=== PATIENT | male | born 1990 | race Caucasian/White ===

== ENCOUNTER 2018-12-05 13:13 | Emergency (ER) | payer SELFPAY ==
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
[2018-12-05] MEDS ORDERED: KETOROLAC TROMETHAMINE 60 MG/2 ML SDV IM ONE (16:22)
[2018-12-05] MEDS ORDERED: LIDOCAINE 5% (700 MG) TRANSDERMAL ADH..PATCH TP ONE (16:22)
[2018-12-05] MEDS ORDERED: ACETAMINOPHEN 325 MG TABLET PO ONE (16:22)
[2018-12-05] MEDS ORDERED: CYCLOBENZAPRINE HCL 10 MG TABLET PO ONE (16:23)
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
[2018-12-05 16:42] VITALS: BP 178/86
== END 2018-12-05 16:45 | disposition home or self-care (01) ==
LOC: ER 13:13
DX: R07.81 Pleurodynia (principal); S00.532A Contusion of oral cavity, initial encounter; R68.84 Jaw pain; V86.96XA Unspecified occupant of dirt bike or motor/cross bike injured in nontraffic accident, initial encounter
CPT/HCPCS: 99283; 96372; 70110; 71101; J1885

== ENCOUNTER 2019-06-12 20:20 | Emergency (ER) | payer SELFPAY ==
[2019-06-12] MEDS ORDERED: ACETAMINOPHEN 325 MG TABLET PO ONE (20:43)
--- NOTE | 2019-06-12 20:44 | ER Document Report ---
ED Medical Screen (RME) - General Chief Complaint: Nose Pain Stated Complaint: NOSE INJURY Time Seen by Provider: 06/12/19 20:37 Notes: Patient is a 28-year-old male who presents to the emergency department after falling down a flight of stairs. Patient states that he does not know how many stairs he fell down. He states he landed face first. Does not know if he passed out. Patient admits to being under the influence of alcohol. Exam: Ecchymosis to nose with small lacerations noted. I have greeted and performed a rapid initial assessment of this patient. A comprehensive ED assessment and evaluation of the patient, analysis of test results and completion of medical decision making process will be conducted by an additional ED providers. TRAVEL OUTSIDE OF THE [place] IN LAST 30 DAYS: No - Related Data Allergies/Adverse Reactions: No Known Drug Allergies Allergy (Verified 12/05/18 13:43) Past Medical History Renal/ Medical History: Denies: Hx Peritoneal Dialysis Physical Exam - Vital signs Vitals: Temp Pulse Resp BP Pulse Ox 98.3 F 113 H 20 156/93 H 96 06/12/19 20:25 06/12/19 20:25 06/12/19 20:25 06/12/19 20:25 06/12/19 20:25 Course - Vital Signs Vital signs: Temp Pulse Resp BP Pulse Ox 98.3 F 113 H 20 156/93 H 96 06/12/19 20:25 06/12/19 20:25 06/12/19 20:25 06/12/19 20:25 06/12/19 20:25
--- NOTE | 2019-06-12 21:16 | RADIOLOGY REPORT (SQ) ---
CT HEAD WITHOUT IV CONTRAST CLINICAL STATEMENT: fall down stairs TECHNIQUE: Axial CT images from skull base to vertex without IV contrast. This exam was performed according to our departmental dose optimization program, and includes the following measures where applicable: automated exposure control, adjustment of the mAs and/or kVp according to patient size and/or exam, and an iterative reconstruction algorithm. COMPARISON: None. FINDINGS: There is no acute intracranial hemorrhage, mass, mass effect or abnormal extra-axial fluid collection. No evidence of an acute territorial infarct is identified. The ventricles are normal. Calvaria: The skull base and calvaria demonstrate no abnormality. Zygomatic arch is intact. Pterygoid plates appear normal. Paranasal sinuses: Fractured of the nasal septum is seen apex left. There is a comminuted nasal bone fracture also seen. There is an air-fluid level in both maxillary sinuses and diffuse mucosal thickening of the ethmoid and maxillary sinuses. There is air seen in the subcutaneous tissues at the nasal bone fracture. Mastoid air cells are well aerated. skull base: Unremarkable IMPRESSION: 1. No intracranial hemorrhage or mass lesion. 2. Comminuted nasal bone fracture as well as fracture of the nasal septum. There is air in the soft tissues suggesting an open fracture.
--- NOTE | 2019-06-12 21:18 | RADIOLOGY REPORT (SQ) ---
EXAM DESCRIPTION: CT scan of the cervical spine without contrast CLINICAL HISTORY: 28 years Male; fall down stairs TECHNIQUE: Noncontrast cervical spine CT with sagittal and coronal reconstructions. All CT scans at this facility use dose modulation, iterative reconstruction, and/or weight based dosing when appropriate to reduce radiation dose to as low as reasonably achievable. COMPARISON: None FINDINGS: General: Cervical spine is visualized from the skull base through T1 . Straightening of the normal cervical lordosis is identified. Vertebral body heights and interspaces are preserved. No fracture is seen. Soft tissues of the neck are unremarkable. The airway is patent. Thyroid gland appears normal. Lung apices are clear. No foraminal narrowing. No spinal stenosis. No significant degenerative change.. IMPRESSION: Straightening of the normal cervical lordosis. No fracture. No significant degenerative change.
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
[2019-06-12 23:57] VITALS: BP 134/90
== END 2019-06-12 23:57 | disposition home or self-care (01) ==
LOC: ER 20:20
DX: S02.2XXA Fracture of nasal bones, initial encounter for closed fracture (principal); W10.9XXA Fall (on) (from) unspecified stairs and steps, initial encounter; R09.81 Nasal congestion; Z87.891 Personal history of nicotine dependence
CPT/HCPCS: 70450; 72125; 99283

== ENCOUNTER 2019-07-12 13:51 | Emergency (ER) | payer OTHER ==
[2019-07-12 13:56] VITALS: BP 177/92
[2019-07-12] MEDS ORDERED: HYDROCODONE/ACETAMINOPHEN 5-325 MG TABLET PO ONE (14:04)
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
== END 2019-07-12 15:30 | disposition home or self-care (01) ==
LOC: ER 13:51
DX: M54.5 Low back pain (principal); V49.50XA Passenger injured in collision with unspecified motor vehicles in traffic accident, initial encounter; F17.200 Nicotine dependence, unspecified, uncomplicated
CPT/HCPCS: 72070; 72110; 99283

== ENCOUNTER 2019-10-24 00:17 | Emergency (ER) | payer SELFPAY ==
[2019-10-24] MEDS ORDERED: DIPH/PERTUSS(ACELL)/TETANUS VAC/PF 0.5 ML SYR (>=10YO) IM ONE (00:29)
[2019-10-24] MEDS ORDERED: IBUPROFEN 400 MG TABLET PO ONE (00:29)
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
[2019-10-24 03:48] VITALS: BP 112/71
== END 2019-10-24 03:48 | disposition home or self-care (01) ==
LOC: ER 00:17
DX: S01.111A Laceration without foreign body of right eyelid and periocular area, initial encounter (principal); T14.8XXA Other injury of unspecified body region, initial encounter; Y04.0XXA Assault by unarmed brawl or fight, initial encounter; R55 Syncope and collapse
CPT/HCPCS: 99285; 96372; 70450; 72125; J3490